=== PATIENT | female | born 1955 | race Caucasian/White ===

== ENCOUNTER 2017-10-01 12:13 | Inpatient (IN) | payer MEDICARE ==
[~2017-10-01] VITALS: Ht 185.4 cm; Wt 110.5 kg
--- NOTE | ~2017-10-01 | OP ---
PATIENT NAME: FER CAMARA MEDICAL RECORD: [id number] LOCATION:[id number] ADMISSION DATE:10/01/17 SURGEON: JC TYLER MD DATE OF OPERATION: 10/02/2017 PREOPERATIVE DIAGNOSIS: Septic olecranon bursitis of the right elbow. POSTOPERATIVE DIAGNOSIS: Septic olecranon bursitis of the right elbow. PROCEDURE: Excisional debridement of septic olecranon bursitis to include skin, subcutaneous tissue, portions of fat, fascia and muscle, 80 cm in aggregate. The wound was packed postoperatively. SURGEON: Jc Tyler MD ANESTHESIA: General. INTRAOPERATIVE COMPLICATIONS: None. SUMMARY OF PATHOLOGIC FINDINGS: Upon incising the olecranon bursa, the patient had phlegmon septated purulent cavity. This obviously appears to have been a chronic bursitis due to the amount of soft tissue noted on the tip of the olecranon. Please note, cultures were taken and the wound was packed open. OPERATIVE SUMMARY IN DETAIL: After obtaining the appropriate preoperative orthopedic surgery consent as well as anesthetic consultation, evaluation, and clearance, the patient was brought to the operating room and placed on table in supine position. After general laryngeal mask airway was administered, the patient was placed in a left lateral decubitus position. All pressure points were well padded to include down leg peroneal pad as well as axillary roll. The patient was held firmly to the operating table using the vacuum pack suction system. Right upper extremity was prepped and draped in a routine sterile fashion. After the appropriate intraoperative time-out, incision was made over the olecranon and copious purulence was noted. This was cultured. The entire olecranon bursa was opened in its entirety. Multiple septa were taken down along with all the phlegmon. A combination of rongeur and curettage was then utilized to completely excisionally debride all of the nonviable appearing tissue. Copious irrigation was then followed by packing with 1-inch iodoform gauze. Sterile dressings were applied. The patient was awakened and taken to recovery room in stable condition. All final needle and sponge counts were correct. TRANSINT:[id number] Voice Confirmation ID: [id number] DOCUMENT ID: [id number] JC TYLER MD at 1822 CC: [id number] DICTATION DATE: 10/02/17 1201 [address] OPERATOR: 10/02/17 1351 ADM IN [facility] [address] [id number]
[2017-10-01 15:49] VITALS: BP 129/87; BMI 32.1
[2017-10-01 16:00] VITALS: BP 128/87
[2017-10-01 16:16] LABS: BASOPHILS 0.7 % (0-2); EOSINOPHILS 6.9 % (0-7); HEMATOCRIT 37.1 % (36.0-48.0); HEMOGLOBIN 12.4 g/dL (12-16); IMMATURE GRANULOCYTES 0.5 % (0-5); LYMPHOCYTES 16.9 % (15-50); MCH 30.4 pg (26.0-34.0); MCHC 33.4 g/dL (31.0-37.0); MCV 90.9 fL (80.0-100.0); MEAN PLATELET VOLUME 8.5 fL (7.4-10.4); MONOCYTES 9.9 % (2-11); NEUTROPHILS 65.1 % (40-80); PLATELET COUNT 315 10x3/uL (130-400); RBC 4.08 10x6/uL (4.00-5.40); WBC 11.5 10x3/uL (4.8-10.8)
[2017-10-01 16:57] LABS: ALBUMIN 3.1 g/dL (3.4-5.0); ANION GAP 16.2 mmol/L (8-16); BILIRUBIN - TOTAL 0.14 mg/dL (0.2-1.3); CARBON DIOXIDE 20.3 mmol/L (21.0-32.0); CREATININE - SERUM 1.4 mg/dL (0.6-1.3); POTASSIUM - SERUM 4.5 mmol/L (3.5-5.1); PROTEIN - SERUM 6.9 g/dL (6.4-8.2)
[2017-10-01 17:25] VITALS: Ht 185.4 cm; Wt 110.5 kg
[2017-10-01 17:26] LABS: ERYTHROCYTE SEDIMENTATION RATE 38 mm/hr (0-30)
[2017-10-01] MEDS ORDERED: ABILIFY15 MG PO (17:29)
[2017-10-01] MEDS ORDERED: BACLOFEN10 MG PO (17:30)
[2017-10-01] MEDS ORDERED: GEMFIBROZIL600 MG PO (17:31)
[2017-10-01] MEDS ORDERED: PROZAC40 MG PO (17:31)
[2017-10-01] MEDS ORDERED: TOFRANIL50 MG PO (17:33)
[2017-10-01] MEDS ORDERED: LATUDA80 MG PO (17:34)
[2017-10-01] MEDS ORDERED: PRINIVIL20 MG PO (17:34)
[2017-10-01] MEDS ORDERED: MOBIC7.5 MG PO (17:35)
[2017-10-01] MEDS ORDERED: RESTORIL15 MG PO (17:36)
[2017-10-01 20:00] VITALS: BP 139/88
[2017-10-02] VITALS (10 sets, daily range): BP systolic 108–145; BP diastolic 65–94
[2017-10-02 06:02] LABS: BASOPHILS 0.8 % (0-2); EOSINOPHILS 8.1 % (0-7); HEMATOCRIT 36.1 % (36.0-48.0); HEMOGLOBIN 11.9 g/dL (12-16); IMMATURE GRANULOCYTES 0.9 % (0-5); LYMPHOCYTES 20.7 % (15-50); MCH 29.8 pg (26.0-34.0); MCV 90.3 fL (80.0-100.0); MEAN PLATELET VOLUME 8.6 fL (7.4-10.4); NEUTROPHILS 60.5 % (40-80); PLATELET COUNT 322 10x3/uL (130-400); RDW 14.1 % (11.5-14.5)
[2017-10-02 06:31] LABS: ALBUMIN 2.9 g/dL (3.4-5.0); ANION GAP 15.3 mmol/L (8-16); BILIRUBIN - TOTAL 0.29 mg/dL (0.2-1.3); CALCIUM 8.2 mg/dL (8.5-10.1); CARBON DIOXIDE 20.1 mmol/L (21.0-32.0); CREATININE - SERUM 1.4 mg/dL (0.6-1.3); POTASSIUM - SERUM 4.4 mmol/L (3.5-5.1)
[2017-10-03 04:00] VITALS: BP 123/76
[2017-10-03 06:15] LABS: BASOPHILS 0.6 % (0-2); EOSINOPHILS 1.8 % (0-7); HEMOGLOBIN 11.3 g/dL (12-16); IMMATURE GRANULOCYTES 0.9 % (0-5); LYMPHOCYTES 15.9 % (15-50); MCH 29.4 pg (26.0-34.0); MCHC 32.3 g/dL (31.0-37.0); MCV 91.1 fL (80.0-100.0); MEAN PLATELET VOLUME 8.5 fL (7.4-10.4); MONOCYTES 8.8 % (2-11); PLATELET COUNT 325 10x3/uL (130-400); RBC 3.84 10x6/uL (4.00-5.40); WBC 10.5 10x3/uL (4.8-10.8)
[2017-10-03 06:30] LABS: ALBUMIN 2.7 g/dL (3.4-5.0); ANION GAP 14.1 mmol/L (8-16); BILIRUBIN - TOTAL 0.23 mg/dL (0.2-1.3); CARBON DIOXIDE 20.6 mmol/L (21.0-32.0); CREATININE - SERUM 1.4 mg/dL (0.6-1.3); POTASSIUM - SERUM 4.7 mmol/L (3.5-5.1); PROTEIN - SERUM 6.8 g/dL (6.4-8.2); VANCOMYCIN - TROUGH 18.5 ug/mL (10.0-20.0)
[2017-10-03 08:57] VITALS: BP 110/65
[2017-10-03 12:33] VITALS: BP 100/55
[2017-10-03 20:00] VITALS: BP 102/64
[2017-10-04] VITALS: BP 112/69
[2017-10-04 04:00] VITALS: BP 99/68
[2017-10-04 06:23] LABS: BASOPHILS 1.5 % (0-2); EOSINOPHILS 7.8 % (0-7); HEMATOCRIT 34.9 % (36.0-48.0); HEMOGLOBIN 11.2 g/dL (12-16); IMMATURE GRANULOCYTES 2.2 % (0-5); LYMPHOCYTES 32.9 % (15-50); MCH 29.4 pg (26.0-34.0); MCHC 32.1 g/dL (31.0-37.0); MCV 91.6 fL (80.0-100.0); MEAN PLATELET VOLUME 8.5 fL (7.4-10.4); MONOCYTES 9.2 % (2-11); NEUTROPHILS 46.4 % (40-80); PLATELET COUNT 366 10x3/uL (130-400); RBC 3.81 10x6/uL (4.00-5.40); RDW 14.1 % (11.5-14.5)
[2017-10-04 06:37] LABS: WBC 7.2 10x3/uL (4.8-10.8)
[2017-10-04 07:02] LABS: ALBUMIN 2.8 g/dL (3.4-5.0); BILIRUBIN - TOTAL 0.14 mg/dL (0.2-1.3); CALCIUM 7.8 mg/dL (8.5-10.1); CARBON DIOXIDE 22.8 mmol/L (21.0-32.0); CREATININE - SERUM 1.3 mg/dL (0.6-1.3); POTASSIUM - SERUM 4.8 mmol/L (3.5-5.1); PROTEIN - SERUM 6.1 g/dL (6.4-8.2)
[2017-10-04 09:03] VITALS: BP 134/84
[2017-10-04 20:56] VITALS: BP 117/69
[2017-10-05 00:46] VITALS: BP 136/85
[2017-10-05 05:05] LABS: BASOPHILS 0.9 % (0-2); EOSINOPHILS 7.7 % (0-7); HEMATOCRIT 34.9 % (36.0-48.0); HEMOGLOBIN 11.3 g/dL (12-16); IMMATURE GRANULOCYTES 1.8 % (0-5); MCH 29.7 pg (26.0-34.0); MCHC 32.4 g/dL (31.0-37.0); MCV 91.6 fL (80.0-100.0); MEAN PLATELET VOLUME 8.4 fL (7.4-10.4); MONOCYTES 9.4 % (2-11); NEUTROPHILS 49.2 % (40-80); PLATELET COUNT 352 10x3/uL (130-400); RBC 3.81 10x6/uL (4.00-5.40); WBC 6.5 10x3/uL (4.8-10.8)
[2017-10-05 05:38] LABS: ALBUMIN 2.7 g/dL (3.4-5.0); ANION GAP 12.1 mmol/L (8-16); BILIRUBIN - TOTAL 0.15 mg/dL (0.2-1.3); CALCIUM 8.1 mg/dL (8.5-10.1); CARBON DIOXIDE 22.5 mmol/L (21.0-32.0); CREATININE - SERUM 1.4 mg/dL (0.6-1.3); POTASSIUM - SERUM 4.6 mmol/L (3.5-5.1); PROTEIN - SERUM 6.4 g/dL (6.4-8.2)
[2017-10-05 08:49] VITALS: BP 131/89
[2017-10-05 15:56] VITALS: BP 129/78
[2017-10-05 20:26] VITALS: BP 122/73
[2017-10-06 04:49] VITALS: BP 134/74
[2017-10-06 05:01] LABS: BASOPHILS 0.9 % (0-2); EOSINOPHILS 7.1 % (0-7); HEMATOCRIT 33.8 % (36.0-48.0); HEMOGLOBIN 11.1 g/dL (12-16); IMMATURE GRANULOCYTES 1.7 % (0-5); LYMPHOCYTES 27.5 % (15-50); MCH 29.6 pg (26.0-34.0); MCHC 32.8 g/dL (31.0-37.0); MCV 90.1 fL (80.0-100.0); MEAN PLATELET VOLUME 8.2 fL (7.4-10.4); MONOCYTES 8.9 % (2-11); NEUTROPHILS 53.9 % (40-80); PLATELET COUNT 369 10x3/uL (130-400); RBC 3.75 10x6/uL (4.00-5.40); RDW 13.8 % (11.5-14.5); WBC 7.4 10x3/uL (4.8-10.8)
[2017-10-06 05:11] LABS: ALBUMIN 2.6 g/dL (3.4-5.0); ANION GAP 11.8 mmol/L (8-16); BILIRUBIN - TOTAL 0.17 mg/dL (0.2-1.3); CARBON DIOXIDE 23.6 mmol/L (21.0-32.0); CREATININE - SERUM 1.2 mg/dL (0.6-1.3); POTASSIUM - SERUM 4.4 mmol/L (3.5-5.1); PROTEIN - SERUM 6.3 g/dL (6.4-8.2)
[2017-10-06] MEDS ORDERED: HYDROCODON-ACE1 EAC7 PO (08:02)
[2017-10-06] MEDS ORDERED: BACTRIM DS TABL1 TAB PO (08:02)
[2017-10-06] MEDS ORDERED: DOXYCYCLINE HY100 M2 PO (08:03)
[2017-10-06 09:11] VITALS: BP 162/100
== END 2017-10-06 14:22 | disposition home health service (06) | DRG 501 ==
LOC: D.SDCHOLD 12:13 → D.MS 13:00
PROVIDERS: Family Medicine; Orthopaedic Surgery
PROC: 0MB30ZZ Excision of Right Elbow Bursa and Ligament, Open Approach (ICD-10-PCS; principal; 2017-10-02 14:45)
DX: M71.121 Other infective bursitis, right elbow (principal); L03.113 Cellulitis of right upper limb; G12.21 Amyotrophic lateral sclerosis; R06.00 Dyspnea, unspecified; D64.9 Anemia, unspecified; B95.61 Methicillin susceptible Staphylococcus aureus infection as the cause of diseases classified elsewhere

== ENCOUNTER 2017-10-20 12:04 | Emergency (ER) | payer MEDICARE ==
[~2017-10-20] VITALS: Ht 185.4 cm; Wt 111.4 kg
[~2017-10-20 12:04] MED LIST: ABILIFY15 MG PO; BACLOFEN10 MG PO; BACTRIM DS TABL1 TAB PO; DOXYCYCLINE HY100 M2 PO; GEMFIBROZIL600 MG PO; HYDROCODON-ACE1 EAC7 PO; LATUDA80 MG PO; MOBIC7.5 MG PO; PRINIVIL20 MG PO; PROZAC40 MG PO; RESTORIL15 MG PO; TOFRANIL50 MG PO
[2017-10-20 12:08] VITALS: Ht 185.4 cm; Wt 111.4 kg
[2017-10-20 12:39] LABS: BASOPHILS 0.8 % (0-2); EOSINOPHILS 2.2 % (0-7); HEMATOCRIT 41.8 % (36.0-48.0); HEMOGLOBIN 14.1 g/dL (12-16); IMMATURE GRANULOCYTES 0.4 % (0-5); LYMPHOCYTES 20.4 % (15-50); MCH 30.3 pg (26.0-34.0); MCHC 33.7 g/dL (31.0-37.0); MCV 89.9 fL (80.0-100.0); MEAN PLATELET VOLUME 8.7 fL (7.4-10.4); MONOCYTES 9.6 % (2-11); NEUTROPHILS 66.6 % (40-80); PLATELET COUNT 308 10x3/uL (130-400); RBC 4.65 10x6/uL (4.00-5.40); RDW 13.5 % (11.5-14.5); WBC 10.6 10x3/uL (4.8-10.8)
[2017-10-20 12:55] LABS: ALBUMIN 4.3 g/dL (3.4-5.0); ALKALINE PHOSPHATASE 92 U/L (46-116); ALT (SGPT) 41 U/L (10-68); BILIRUBIN - TOTAL 0.32 mg/dL (0.2-1.3); CALC OSMOLALITY 278 mosm/kg (275-300); CALCIUM 8.9 mg/dL (8.5-10.1); CARBON DIOXIDE 17.8 mmol/L (21.0-32.0); CHLORIDE - SERUM 104 mmol/L (98-107); CREATININE - SERUM 2.4 mg/dL (0.6-1.3); GLUCOSE 119 mg/dL (74-106); POTASSIUM - SERUM 4.7 mmol/L (3.5-5.1); PROTEIN - SERUM 8.8 g/dL (6.4-8.2); SODIUM 135 mmol/L (136-145); UREA NITROGEN 36 mg/dL (7-18); eGFR NON AFRICAN AMERICAN 22 mL/min (90-120)
[2017-10-20 13:08] LABS: CREATINE KINASE 245 UL (21-215); TROPONIN-I < 0.017 ng/mL (0.000-0.060)
[2017-10-20 14:13] VITALS: BP 149/95
== END 2017-10-20 14:15 | disposition home or self-care (01) ==
LOC: D.ER 12:04
PROVIDERS: Family Medicine
DX: K59.00 Constipation, unspecified (principal); R07.89 Other chest pain; I10 Essential (primary) hypertension; R00.0 Tachycardia, unspecified; I44.5 Left posterior fascicular block

== ENCOUNTER 2017-11-26 21:07 | Emergency (ER) | payer MEDICARE ==
[~2017-11-26] VITALS: Ht 185.4 cm; Wt 73.9 kg
[2017-11-26 21:12] VITALS: Ht 185.4 cm; Wt 73.9 kg
[2017-11-26 22:39] LABS: APPEARANCE CLEAR (CLEAR); COLOR YELLOW (YELLOW)
[2017-11-26 22:40] LABS: BILIRUBIN NEGATIVE (NEGATIVE); GLUCOSE NEGATIVE (NEGATIVE); KETONE NEGATIVE (NEGATIVE); NITRITE NEGATIVE (NEGATIVE); PROTEIN NEGATIVE (NEGATIVE); SPECIFIC GRAVITY 1.015 (1.005-1.020); UROBILINOGEN NORMAL (NORMAL)
[2017-11-26 23:15] LABS: BASOPHILS 0.7 % (0-2); HEMOGLOBIN 11.7 g/dL (13.5-17.5); IMMATURE GRANULOCYTES 0.3 % (0-5); LYMPHOCYTES 32.1 % (15-50); MCH 30.2 pg (26.0-34.0); MCHC 33.4 g/dL (31.0-37.0); MCV 90.4 fL (80.0-100.0); MEAN PLATELET VOLUME 8.4 fL (7.4-10.4); MONOCYTES 10.7 % (2-11); NEUTROPHILS 50.2 % (40-80); PLATELET COUNT 261 10x3/uL (130-400); RBC 3.87 10x6/uL (4.20-6.10); RDW 14.6 % (11.5-14.5); WBC 7.4 10x3/uL (4.8-10.8)
[2017-11-26 23:33] LABS: ALBUMIN 3.6 g/dL (3.4-5.0); ALKALINE PHOSPHATASE 95 U/L (46-116); ALT (SGPT) 29 U/L (10-68); AMYLASE - SERUM 80 U/L (25-115); BILIRUBIN - TOTAL 0.21 mg/dL (0.2-1.3); CALC OSMOLALITY 282 mosm/kg (275-300); CALCIUM 8.8 mg/dL (8.5-10.1); CARBON DIOXIDE 23.4 mmol/L (21.0-32.0); CHLORIDE - SERUM 107 mmol/L (98-107); CREATININE - SERUM 1.9 mg/dL (0.6-1.3); GLUCOSE 123 mg/dL (74-106); LIPASE 211 U/L (73-393); PROTEIN - SERUM 7.6 g/dL (6.4-8.2); SODIUM 140 mmol/L (136-145); TROPONIN-I < 0.017 ng/mL (0.000-0.060); UREA NITROGEN 21 mg/dL (7-18); eGFR NON AFRICAN AMERICAN 39 mL/min (90-120)
[2017-11-27] MEDS ORDERED: ROBAXIN500 MG PO (00:58)
[2017-11-27] MEDS ORDERED: PROTONIX40 MG PO (00:58)
[2017-11-27 01:59] VITALS: BP 163/92
== END 2017-11-27 01:59 | disposition home or self-care (01) ==
LOC: EDSEX 21:07 → D.ER 21:07
PROVIDERS: Family Medicine
DX: R10.13 Epigastric pain (principal); D64.9 Anemia, unspecified; N28.9 Disorder of kidney and ureter, unspecified; R07.81 Pleurodynia; I10 Essential (primary) hypertension; F90.9 Attention-deficit hyperactivity disorder, unspecified type